=== PATIENT | male | born 2000 | race Caucasian/White ===

== ENCOUNTER 2021-07-27 13:51 | Emergency (ER) | payer MEDICAID ==
[~2021-07-27] VITALS: Ht 190.5 cm; Wt 88.5 kg
[2021-07-27 13:52] VITALS: BP 128/76
[2021-07-27] MEDS ORDERED: IBUP-1955 PO (15:18)
[2021-07-27] MEDS ORDERED: CYCL5TAB PO (15:21)
[2021-07-27] MEDS ORDERED: KETOROLAC TROMETHAMINE INJ 30 MG/ML VIAL ONE (15:27)
[2021-07-27] MEDS: KETOROLAC TROMETHAMINE INJ 60 MG/2 ML VIAL IM ONE (15:29)
--- NOTE | 2021-07-27 15:30 | NUR ---
Patient discharged to home in stable condition. Written and verbal after care instructions given. Patient verbalizes understanding of instruction.
== END 2021-07-27 15:30 | disposition home or self-care (01) ==
LOC: ER 13:55
DX: S39.012A Strain of muscle, fascia and tendon of lower back, initial encounter (principal); X50.1XXA Overexertion from prolonged static or awkward postures, initial encounter; Y93.89 Activity, other specified; Y92.89 Other specified places as the place of occurrence of the external cause; Y99.8 Other external cause status
CPT/HCPCS: 96372; 99283; J1885